=== PATIENT | male | born 1975 | race Caucasian/White ===

== ENCOUNTER 2018-06-15 20:27 | Emergency (ER) | payer OTHER, SELFPAY ==
[2018-06-15 20:28] VITALS: BP 139/94; PULSE 112; RESP 18; TEMP 36.9; O2SAT 98; BMI 35.9
--- NOTE | 2018-06-15 22:19 | ED.VISSUMM ---
- ER Visit Summary Date of Service: 06/15/18 Chief Complaint: Puncture wound top of left foot History of Present Illness: The patient is a 43 M a nail and it and the board slipped and the nail punctured the top of his left foot. He said he removed it easily. This occurred several hours ago. He went to have it evaluated. Unsure of last tetanus shot thinks is been greater than 10 years. No other injuries. Physical Examination: Well-appearing middle-age male. Vital signs are stable afebrile. H EENT exam unremarkable. Lungs clear to auscultation. Heart regular rhythm no murmur. Abdomen soft. Moving all 4 extremities. Neurovascularly intact. His left foot is neurovascularly intact with full range of motion. Normal touch sensation. He is able to dorsi plantarflex. He is able to wiggle his toes. Top of his left foot in the midportion there is a small puncture wound. There is no significant hematoma. No signs of infection. No bony deformities. Test Results: X-ray of the left foot 3 views read both by myself and the radiologist shows no acute abnormality. Emergency Department Course and Treatment: Tetanus will be updated. He will be treated for potential infection due to the puncture wound. Treatment Plan: Keflex 4 times daily for 5 days. Watch for any signs of infection. Ice and elevate. Motrin for pain. Disposition: Discharge Impression: Acute left foot puncture wound versus nail Tetanus updated This note was generated with [employer] dictation software. It may contain incorrect words, spelling, and punctuation that were not noted in review of the chart prior to signing ED Disposition - Plan for ED Patient: Chief Complaint: Lower Extremity Injury Referrals: Care Physician,No Primary [Primary Care Provider] -
--- NOTE | 2018-06-15 22:21 | ED.DEP ---
ED Disposition - Plan for ED Patient: Disposition: Home or Assisted Living Chief Complaint: Lower Extremity Injury Instructions: ED Wound Puncture Foot Prescriptions: Cephalexin [Keflex] 500 mg PO Q6 #20 cap Referrals: Shamar Reese MD [STAFF PHYSICIAN] - As Needed Additional Instructions: Ice and elevate. Motrin and Tylenol for pain. Return if increasing swelling, redness, streaks or fever. Keflex 1 pill 4 times a day for the next 5 days.
[2018-06-15] MEDS: Diphth,Pertuss(Acell),Tet Vac 0.5 ML Vial IM (22:45)
[2018-06-15] MEDS: Cephalexin 250 MG Capsule 500 MG PO (22:46)
[2018-06-15 23:01] VITALS: BP 129/78; PULSE 91; RESP 20; O2SAT 98
--- NOTE | 2018-06-15 23:02 | ED.RN ---
THIS NURSE REVIEWED D/C INSTRUCTIONS WITH PT. PT VERBALIZED UNDERSTANDING OF INSTRUCTIONS. PT DENIES PAIN, REDNESS, OR ITCHING AT INJECTION SITE. PT DENIES FURTHER NEEDS OR QUESTIONS AT THIS TIME. PT AMBULATES FROM DEPARTMENT ON OWN WITHOUT ASSISTANCE FROM STAFF
== END 2018-06-15 23:03 | disposition home or self-care (01) ==
PROVIDERS: Emergency Provider Emergency Medicine
DX: S91.332A Puncture wound without foreign body, left foot, initial encounter (principal); W45.0XXA Nail entering through skin, initial encounter; Y93.9 Activity, unspecified; Y92.9 Unspecified place or not applicable; Y99.9 Unspecified external cause status; Z23 Encounter for immunization
CPT/HCPCS: 73630; 90471; 90715; 99283

== ENCOUNTER → 2018-09-14 15:28 | Outpatient (CLI) | payer OTHER, SELFPAY ==
--- NOTE | 2018-09-14 15:35 | RAD_ITS ---
STUDY: X-RAY - SOFT TISSUE NECK REASON FOR EXAM: Male, 43 years old. Possible obstructive sleep apnea. TECHNIQUE: AP and lateral view(s) of the neck were obtained. COMPARISON: None. FINDINGS: Normal visualized nasopharynx, oropharynx, hypopharynx. The airway measures 17.6 mm from the base of the tongue to the anterior prevertebral soft tissues at the C2 level. Normal epiglottis. Normal visualized subglottic tracheal air column. Normal prevertebral soft tissue structures. Normal visualized osseous structures. The soft tissue structures are unremarkable. RAD/Neck for Soft Tissue IMPRESSION: The airway measures 17.6 mm from the base of the tongue to the anterior prevertebral soft tissues at the C2 level. Electronically Signed: Terrell Chauhan MD at 15:14 EST Tel [phone], Service support ,
== END ==
PROVIDERS: Referring Provider Otolaryngology Otolaryngology/Facial Plastic Surgery; Visit Provider Otolaryngology Otolaryngology/Facial Plastic Surgery
DX: R06.83 Snoring (principal)
CPT/HCPCS: 70360

== ENCOUNTER → 2018-09-29 20:20 | Outpatient (CLI) | payer OTHER, SELFPAY | PROVIDERS: Referring Provider Otolaryngology Otolaryngology/Facial Plastic Surgery; Visit Provider Otolaryngology Otolaryngology/Facial Plastic Surgery | DX: R06.83 Snoring (principal) | CPT/HCPCS: 95810 ==

== ENCOUNTER → 2018-10-08 20:35 | Outpatient (CLI) | payer OTHER, SELFPAY | PROVIDERS: Referring Provider Otolaryngology Otolaryngology/Facial Plastic Surgery; Visit Provider Otolaryngology Otolaryngology/Facial Plastic Surgery | DX: G47.33 Obstructive sleep apnea (adult) (pediatric) (principal) | CPT/HCPCS: 95811 ==

== ENCOUNTER 2020-06-11 16:30 | Outpatient (RCR) | payer OTHER, SELFPAY ==
--- NOTE | 2020-03-29 11:09 | HP.PTEVAL ---
Patient's Visit Information ALISSA CASE is a 44 year old M referred to Physical Therapy by MALIK JOYA with a diagnosis of L shoulder biceps tenodesis and labral repair. Date of Evaluation: 03/29/20 Physical Therapist: Deepak Griffith, PT, ATC - Visit Plan Frequency: 2-3x /Week Duration: 4-6 Weeks Plan: Follow [facility] in chart. Cp for pain. - Subjective DOS: 03/26/2020. Pt had L shoulder arthroscopy for biceps tenodesis and labral repair. Pt reports he is not sure how it happened, but notes he was weight lifting over a time period and started to get sore. Pt reports he is still sore today and really hasnt noticed a big difference yet. No tingling or numbness in L UE at this time. Pt notes difficulty with sleep at this time but notes the pain meds help overall. Pt reports he was told that he is not to lift anything over one pound at this time. No PMHx of L shoulder trauma. Pt is R hand dominant. 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 3/10 pain at rest, 8/10 pain at worst. - Pain L shoulder arthoscopy Pain Intensity (Out of 10): 3 Pain Intensity Range: 8 - Objective Neuro: B UE sensation is WNL to light touch. Observation: Incision still wrapped with adhesive covering. No redness or signs of infection present. ROM: R shoulder AROM: flex= 180, abd= 180, ER= 64, IR WNL; L shoulder PROM: flex= 65, abd= 75 degrees. MMT: R shoulder 5/5 throughout. L shoulder 2-/5. - Goals Goal 1:: Decrease L shoulder pain x 50% to aid with sleep Goal Time Frame: 4-6 Weeks Goal 2:: Increase L shoulder ROM flex and abd x 40 degrees to aid with overhead lifting Goal Time Frame: 4-6 Weeks Goal 3:: Increase L shoulder strength x 1 grade to aid with IADL's Goal Time Frame: 4-6 Weeks Goal 4:: I with HEP Goal Time Frame: 4-6 Weeks - Rehabilitation Potential Physical Therapy Diagnosis: L shoulder pain, weakness, and limited ROM secondary to L shoulder arthroscopy Rehabilitation Potential: Good - Anticipated Interventions Patient/Client Instruction: Educate patient on: Condition, Plan of Care For the Purpose of:: To improve self management Therapeutic Exercise to Include: Strength training, Endurance training, Flexibilty training, Passive ROM, Active ROM, Scapular Strength/Stabilization For the Purpose of:: To decrease pain, To increase ROM, To improve muscle performance and motor function Cryotherapy (ice pack, ice massage): Yes For the Purpose of:: To decrease pain Thank you for the opportunity to evaluate your patient. For Medicare and Medicare HMO plans, please review the plan of care and approve it. It will need to be FAXED BACK to us at [phone] for Medicare purposes. For Medicare only, by signing this I certify the plan of care. Please let me know if there are questions or concerns regarding this plan of care. Physician Signature: Date:
--- NOTE | 2020-07-25 07:41 | HP.PT.NRP ---
ALISSA CASE was seen in my office for initial evaluation on 03/29/20. The following Plan of Care was established for this patient: Initial Frequency: 2-3x /Week Initial Duration: 4-6 Weeks Patient/Client Instruction: Educate patient on: Condition, Plan of Care For the Purpose of:: To improve self management Therapeutic Exercise to Include: Strength training, Endurance training, Flexibilty training, Passive ROM, Active ROM, Scapular Strength/Stabilization For the Purpose of:: To decrease pain, To increase ROM, To improve muscle performance and motor function Cryotherapy (ice pack, ice massage): Yes For the Purpose of:: To decrease pain This patient was last seen in our office . Pertinent comments regarding their Physical therapy will appear below: Pt was treated for 15 PT visits for L shoulder biceps tenodesis and labral repair through the date of 06/11/20. Pt has not returned through todays date and is discontinued at this time. At this point I will be discontinuing this patient from physical therapy. I would be happy to see this patient again in the future if found appropriate by the physician. Thank you! Deepak Griffith, PT, ATC
== END 2020-06-11 19:00 | disposition home or self-care (01) ==
LOC: PT 16:30
DX: S43.432D Superior glenoid labrum lesion of left shoulder, subsequent encounter (principal)
CPT/HCPCS: 97110; 97140; 97161